=== PATIENT | female | born 2000 | race Caucasian/White ===

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

== ENCOUNTER → 2020-06-19 14:24 | Outpatient (BNVA) | payer BC, SELFPAY | PROVIDERS: Family Provider Pediatrics Adolescent Medicine; PCP Pediatrics Adolescent Medicine; Visit Provider Internal Medicine | DX: N91.2 Amenorrhea, unspecified (principal) | CPT/HCPCS: 84702 ==

== ENCOUNTER → 2021-03-03 12:48 | Outpatient (BNVA) | payer BC, SELFPAY | PROVIDERS: Family Provider Pediatrics Adolescent Medicine; Visit Provider Registered Nurse Neonatal Intensive Care | DX: Z20.822 Contact with and (suspected) exposure to COVID-19 (principal) | CPT/HCPCS: 87635 ==

== ENCOUNTER 2021-04-16 07:45 | Emergency (ER) | payer OTHER, SELFPAY ==
[2021-04-16 07:52] VITALS: BP 121/77; PULSE 75; RESP 18; TEMP 37.1; O2SAT 98; BMI 28.3
--- NOTE | 2021-04-16 08:04 | W.ED.EXTPRO ---
HPI - Extremity Problem General: Chief complaint: Extremity Injury, Upper Stated complaint: R hand injury Time Seen by Provider: 04/16/21 07:47 History of Present Illness: Patient is a 20-year-old female comes to the ED with accidental needlestick. 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 K wire was contaminated by being in contact the person who was getting surgery currently. Needlestick occurred in the palm of patient's right hand. Patient denies any other symptoms. Patient is up-to-date on her tetanus. Associated symptoms: Deny chest pain, fever(s) or rash Review of Systems Const: Denies: fever(s), chills or fatigue Eyes: Denies: change in vision or eye discomfort ENMT: Denies: throat pain, odynophagia, nasal discharge or nasal congestion Card: Denies: chest pain, palpitations, edema, swelling of feet/ankles, dyspnea on exertion or orthopnea Resp: Denies: dyspnea, productive cough or non-productive cough GI: Denies: abdominal pain, nausea, vomiting, diarrhea, constipation or hematochezia : Denies: flank pain, dysuria or hematuria Musc: Denies: neck pain, back pain or extremity swelling Skin/Breast: Reports: new lesions (Small puncture wound to right hand); Denies: rash Neuro: Denies: headache(s), numbness in extremities or weakness in extremities [facility] PFSH: Medical History Anxiety No pertinent past medical history neghx: htn,dm,thyroid,DVT/PE PCP: Milvia Brenner Oligomenorrhea Primary dysmenorrhea Surgical History No pertinent past surgical history Family History Mother Hypertension Grandfather Hypertension Paternal grandfather Stroke Maternal grandfather Heart disease Maternal grandfather Diabetes Paternal grandfather Grandmother Hypertension Maternal garndmother Diabetes Maternal Grandmother Denies family history of Colon cancer Ovarian cancer Hyperlipidemia Breast cancer Uterine cancer Social History Smoking and tobacco status: never smoked Alcohol intake: never Female Reproductive History: Date of last menstrual period: 03/11/21 Physical Exam Const: COMMON NORMALS: no acute distress, patient oriented x3, healthy appearing and alert GENERAL APPEARANCE: cooperative and comfortable HENMT: COMMON NORMALS: normocephalic HEAD & SCALP: normocephalic MOUTH: Normal oral and palatal mucosa present THROAT: posterior oropharynx normal and uvula midline Neck/C-Spine: COMMON NORMALS: supple GENERAL: Yes normal visual inspection Resp: COMMON NORMALS: normal respiratory effort, No retractions, No use of accessory muscles and clear to auscultation bilaterally AUSCULTATION: clear to auscultation bilaterally Cardio: COMMON NORMALS: regular rate, regular rhythm, S1 normal heart sound present, S2 normal heart sound present, No gallops present (Cardio), No clicks present (Cardio), No murmurs present (Cardio) and Peripheral pulses 2+ throughout RATE: regular rate RHYTHM: regular rhythm HEART SOUNDS: S1 normal heart sound present and S2 normal heart sound present PERIPHERAL PULSES: Peripheral pulses 2+ throughout GI: COMMON NORMALS: Normal to inspection, nondistended, normoactive bowel sounds present, Soft to palpation, non-tender and no masses PALPATION: Yes Soft to palpation : COMMON NORMALS: Yes no CVA tenderness BLADDER/KIDNEY EXAM: Yes no CVA tenderness Back/Pelvis: COMMON NORMALS: no CVA tenderness Extremity: NARRATIVE EXTREMITY EXAM: Small superficial puncture wound of palm of right hand. No signs of infection noted. GENERAL: Yes normal exam except as noted Neuro: COMMON NORMALS: patient oriented x3 and moves all extremities SENSORIUM/ORIENTATION: Yes alert Skin: NARRATIVE SKIN EXAM: Small superficial puncture wound of palm of right hand. No signs of infection noted. GENERAL SKIN EXAM: dry skin Course ED course: When the results came back on her hepatitis and HIV panel patient was already discharged back to work here in the hospital. I called her preferred phone number and discussed with her the hepatitis and HIV panel results. She said that she has had the hepatitis B vaccination. I last told her that her hepatitis B antibodies were low which is inconsistent with immunity. I recommended that patient contact her PCP and set up an appoint with them for Monday morning for further evaluation and to discuss labs and possible hepatitis B vaccination. Patient understood and agreed with plan. Vital Signs: Vital signs: Vital Signs Temperature 98.7 F 04/16/21 07:52 Pulse Rate 75 04/16/21 07:52 Respiratory Rate 18 04/16/21 07:52 Blood Pressure 121/77 04/16/21 07:52 Pulse Oximetry 98 04/16/21 07:52 MDM - Extremity (Nontraumatic) Medical Decision Making Patient is a 20-year-old female comes to the ED after an accidental needlestick. 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 Vitals stable. CBC, CMP were unremarkable. Hepatitis panel and HIV labs pending. Nurse cleaned, applied triple antibiotic ointment and bandaged wound. Patient was discharged and told to follow up on labs. Labs came back approximately 1 hour after patient was discharged home with contacted her via telephone to let her know about results. I asked her if she had had hepatitis B vaccination series when she was younger and she said she did. I recommend an that she set up an appointment with her PCP on Monday to go over lab results and discuss possible hepatitis B vaccine booster. Patient understood and said she will contact her PCP and get this appointment set up with them on Monday. She was also told to have repeat labs done in 4 to 8 weeks. Return to ED precautions given. Patient understood and agreed with plan. Lab Data I reviewed the patient's lab results. : 04/16/21 08:21 04/16/21 08:21 Laboratory Results WBC 8.7 10^3/uL (4.5-13.0) 04/16/21 08:21 RBC 4.44 10^6/uL (4.1-5.3) 04/16/21 08:21 Hgb 13.0 g/dL (11.5-15.3) 04/16/21 08:21 Hct 41.5 % (37.0-47.0) 04/16/21 08:21 MCV 93.5 fl (81-99) 04/16/21 08:21 MCH 29.3 pg (28.0-34.0) 04/16/21 08:21 MCHC 31.3 g/dL (30.0-36.0) 04/16/21 08:21 RDW 13.1 % (12.1-15.1) 04/16/21 08:21 Plt Count 224 10^3/cmm (130-400) 04/16/21 08:21 MPV 12.2 fL (7.4-10.4) H 04/16/21 08:21 Neut % (Auto) 54.3 % 04/16/21 08:21 Lymph % (Auto) 33.1 % 04/16/21 08:21 [place] % (Auto) 7.1 % 04/16/21 08:21 Eos % (Auto) 3.6 % 04/16/21 08:21 Baso % (Auto) 1.0 % 04/16/21 08:21 Neut # (Auto) 4.74 10^3/uL (1.8-8.0) 04/16/21 08:21 Lymph # (Auto) 2.9 10^3/uL (1.5-6.5) 04/16/21 08:21 [place] # (Auto) 0.6 10^3/uL (0.2-0.9) 04/16/21 08:21 Eos # (Auto) 0.3 10^3/uL (0.0-0.8) 04/16/21 08:21 Baso # (Auto) 0.1 10^3/uL (0.0-0.1) 04/16/21 08:21 Nucleated RBC % (auto) 0 % 04/16/21 08:21 Nucleated RBCs # 0.0 /100WBC 04/16/21 08:21 Sodium 143 mmol/L (136-145) 04/16/21 08:21 Potassium 4.0 mmol/L (3.5-5.1) 04/16/21 08:21 Chloride 106 mmol/L (98-107) 04/16/21 08:21 Carbon Dioxide 23 mmol/L (22-29) 04/16/21 08:21 Anion Gap 18.0 (5-19) 04/16/21 08:21 BUN 11 mg/dL (6-20) 04/16/21 08:21 Creatinine 0.3 mg/dL (0.5-0.9) L 04/16/21 08:21 GFR Calculation 283.6 mL/min (90-130) H 04/16/21 08:21 Glucose 95 mg/dL (65-115) 04/16/21 08:21 Calculated Osmolality 295 mOsm/kg (285-295) 04/16/21 08:21 Calcium 10.4 mg/dL (8.5-10.5) 04/16/21 08:21 Total Bilirubin 0.3 mg/dL (0.15-1.2) 04/16/21 08:21 AST 57 U/L (0-32) H 04/16/21 08:21 ALT 102 U/L (0-33) H 04/16/21 08:21 Alkaline Phosphatase 109 IU/L (35-105) H 04/16/21 08:21 Total Protein 8.1 g/dL (6.6-8.7) 04/16/21 08:21 Albumin 5.3 g/dL (3.5-5.2) H 04/16/21 08:21 Globulin 2.8 g/dL (1.3-4.6) 04/16/21 08:21 Hep Bs Antigen Non-reactive (Nonreactive) 04/16/21 08:21 Hep Bs Antibody 3.5 (11.5-1000) L 04/16/21 08:21 Hepatitis C Antibody Non-reactive (Nonreactive) 04/16/21 08:21 HIV 1&2 Ab & HIV 1 Ag Non-reactive (Non-Reactiv) 04/16/21 08:21 HIV 1&2 Antibody Non-reactive (Non-Reactiv) 04/16/21 08:21 Discharge Plan Discharge Patient Disposition: Home Clinical Impression: Accidental needlestick injury with exposure to body fluid Condition: Stable Prescriptions: No Action amoxicillin-pot clavulanate [Augmentin] 875-125 mg tablet 1 tab PO BID 7 Days Qty: 14 0RF Zoloft 100 mg tablet 50 mg PO DAILY 0RF Discharge Orders: Discharge ED (Routine); Ordered 04/16/21 Ordered By: Wesly Ashraf Referrals: Ana Rosa Blanca MD [Family Provider] - Discharge Diet: Regular Discharge Activity: Resume usual activity Patient Instructions: Needle Stick Injuries (ED) Activity Restrictions/Additional Instructions: Follow-up with medical provider as directed in the next 4 to 8 weeks to recheck hepatitis and HIV lab work. Return to the ER or your medical provider if condition worsens. Please read and understand discharge instructions. Thank you for choosing [facility] for your healthcare needs today. Please realize this is an emergency room and that we are providing you with a medical screening exam and this may not be complete and all inclusive of all the testing and or work up that you may need to determine your ailment or severity of your illness. It is very important that you follow up as instructed or that you return to the Emergency Department should you have concerns or if your condition changes or worsens in any way. Coding Level of Care Code ED Poultry Picker for Melissa Ya Exam Comprehensive
[2021-04-16] MEDS: neomycin-poly-bacitracin oint 0.9 gm Pkt 1 APPLIC TOPICAL (08:18)
[2021-04-16 08:26] LABS: Basophils # 0.1 10^3/uL (0.0-0.1); Eosinophils # 0.3 10^3/uL (0.0-0.8); Eosinophils % 3.6 %; Hematocrit 41.5 % (37.0-47.0); Lymphocytes # 2.9 10^3/uL (1.5-6.5); Lymphocytes % 33.1 %; Mean Corpuscular HGB Conc 31.3 g/dL (30.0-36.0); Mean Corpuscular Hemoglobin 29.3 pg (28.0-34.0); Mean Corpuscular Volume 93.5 fl (81-99); Mean Platelet Volume 12.2 fL (7.4-10.4); Monocytes # 0.6 10^3/uL (0.2-0.9); Monocytes % 7.1 %; Neutrophils # 4.74 10^3/uL (1.8-8.0); Neutrophils % 54.3 %; Nucleated Red Blood Cells % 0 %; Platelet Count 224 10^3/cmm (130-400); Red Blood Count 4.44 10^6/uL (4.1-5.3); Red Cell Distribution Width 13.1 % (12.1-15.1); White Blood Count 8.7 10^3/uL (4.5-13.0)
[2021-04-16 08:50] LABS: Alanine Aminotransferase 102 U/L (0-33); Albumin Level 5.3 g/dL (3.5-5.2); Alkaline Phosphatase 109 IU/L (35-105); Aspartate Amino Transferase 57 U/L (0-32); Blood Urea Nitrogen 11 mg/dL (6-20); Calcium 10.4 mg/dL (8.5-10.5); Carbon Dioxide 23 mmol/L (22-29); Chloride 106 mmol/L (98-107); Globulin 2.8 g/dL (1.3-4.6); Glomerular Filtration Rate 283.6 mL/min (90-130); Glucose 95 mg/dL (65-115); Osmolality Calculated 295 mOsm/kg (285-295); Sodium 143 mmol/L (136-145); Total Bilirubin 0.3 mg/dL (0.15-1.2); Total Protein 8.1 g/dL (6.6-8.7)
[2021-04-16 09:12] LABS: HIV 1 & 2 Antibody Non-Reactive (Non-Reactiv); HIV 1 & 2 Antigen Non-Reactive (Non-Reactiv)
[2021-04-16 09:17] LABS: Hepatitis B Surface AB 3.5 (11.5-1000); Hepatitis B Surface Antigen Non-Reactive (Nonreactive); Hepatitis C Virus Antibody Non-Reactive (Nonreactive)
== END 2021-04-16 08:46 | disposition home or self-care (01) ==
PROVIDERS: Emergency Provider Physician Assistant
DX: S61.431A Puncture wound without foreign body of right hand, initial encounter (principal); Z77.21 Contact with and (suspected) exposure to potentially hazardous body fluids; W26.8XXA Contact with other sharp object(s), not elsewhere classified, initial encounter; Y92.234 Operating room of hospital as the place of occurrence of the external cause; Y99.0 Civilian activity done for income or pay
CPT/HCPCS: 36415; 80053; 85025; 86706; 86803; 87340; 87806; 99282

== ENCOUNTER → 2021-06-17 15:48 | Outpatient (BNVA) | payer OTHER, SELFPAY | PROVIDERS: Visit Provider Obstetrics & Gynecology | DX: N92.6 Irregular menstruation, unspecified (principal) | CPT/HCPCS: 83036; 83525; 84443 ==

== ENCOUNTER → 2021-06-28 15:27 | Outpatient (BNVA) | payer OTHER, SELFPAY | PROVIDERS: Referring Provider Obstetrics & Gynecology; Visit Provider Obstetrics & Gynecology | DX: N92.6 Irregular menstruation, unspecified (principal) | CPT/HCPCS: 76830 ==

== ENCOUNTER → 2021-08-13 08:48 | Outpatient (BNVA) | payer OTHER, SELFPAY | PROVIDERS: Visit Provider Obstetrics & Gynecology | DX: N92.6 Irregular menstruation, unspecified (principal) | CPT/HCPCS: 83525 ==

== ENCOUNTER 2021-09-30 11:38 | Outpatient (CLI) | payer OTHER, SELFPAY ==
[2021-09-30 12:57] LABS: Progesterone 11.37 ng/mL
== END 2021-09-30 11:39 | disposition home or self-care (01) ==
LOC: LAB 11:40
PROVIDERS: Visit Provider Obstetrics & Gynecology
DX: E28.2 Polycystic ovarian syndrome (principal)
CPT/HCPCS: 36415; 84144

== ENCOUNTER → 2021-10-06 13:45 | Outpatient (BNVA) | payer OTHER, SELFPAY | PROVIDERS: Visit Provider Obstetrics & Gynecology | DX: Z32.01 Encounter for pregnancy test, result positive (principal) | CPT/HCPCS: 84702 ==

== ENCOUNTER 2021-11-03 11:31 | Emergency (ER) | payer OTHER, SELFPAY ==
[2021-11-03 11:44] VITALS: BP 117/70; PULSE 81; RESP 16; TEMP 36.6; O2SAT 98; BMI 28.3
[2021-11-03 13:33] LABS: Basophils # 0.1 10^3/uL (0.0-0.1); Basophils % 0.8 %; Eosinophils # 0.3 10^3/uL (0.0-0.8); Eosinophils % 2.9 %; Hematocrit 34.5 % (37.0-47.0); Hemoglobin 10.8 g/dL (11.5-15.3); Lymphocytes # 2.5 10^3/uL (1.5-6.5); Lymphocytes % 25.8 %; Mean Corpuscular HGB Conc 31.3 g/dL (30.0-36.0); Mean Corpuscular Hemoglobin 30.2 pg (28.0-34.0); Mean Corpuscular Volume 96.4 fl (81-99); Mean Platelet Volume 12.6 fL (7.4-10.4); Monocytes # 0.8 10^3/uL (0.2-0.9); Monocytes % 7.8 %; Neutrophils # 5.85 10^3/uL (1.8-8.0); Neutrophils % 61.2 %; Nucleated Red Blood Cells % 0 %; Platelet Count 235 10^3/cmm (130-400); Red Blood Count 3.58 10^6/uL (4.1-5.3); Red Cell Distribution Width 12.8 % (12.1-15.1); White Blood Count 9.6 10^3/uL (4.5-13.0)
[2021-11-03 13:43] LABS: HCG, Serum Qual Negative (Negative)
[2021-11-03 13:45] LABS: Alanine Aminotransferase 104 U/L (0-33); Albumin Level 4.9 g/dL (3.5-5.2); Alkaline Phosphatase 87 U/L (35-105); Anion Gap 16.9 (5-19); Aspartate Amino Transferase 47 U/L (0-32); Blood Urea Nitrogen 14 mg/dL (6-20); Calcium 9.8 mg/dL (8.5-10.5); Carbon Dioxide 24 mmol/L (22-29); Chloride 102 mmol/L (98-107); Globulin 2.6 g/dL (1.3-4.6); Glomerular Filtration Rate 203.5 mL/min (90-130); Glucose 93 mg/dL (65-115); Osmolality Calculated 288 mOsm/kg (285-295); Potassium 3.9 mmol/L (3.5-5.1); Sodium 139 mmol/L (136-145); Total Bilirubin 0.4 mg/dL (0.15-1.2); Total Protein 7.5 g/dL (6.6-8.7)
--- NOTE | 2021-11-03 13:47 | W.ED.ABDPA2 ---
HPI - Abdominal Pain General: Chief Complaint: Abdominal Pain Stated Complaint: right abd pain Time Seen by Provider: 11/03/21 13:40 Source: patient Mode of arrival: ambulatory History of Present Illness: 20-year-old female presents emergency room complaining of lower abdominal pain on the right side. No dysuria urgency or frequency has had normal voiding with BMs. No diarrhea. No flank pain Onset (ago): day(s) (5) Pain Consistency: intermittent Location: Pelvis Severity: moderate Quality: cramping Radiation: none Exacerbating factors: nothing Relieving factors: nothing Associated Symptoms: Reports bloating and GI cramping; Denies anorexia, belching, change in bowel habits, change in stool character, chills, coffee ground emesis, constipation, diarrhea, dyspepsia, dysuria, excessive flatus, fever(s), heartburn, hematochezia, hematuria, hematemesis, fecal incontinence, loose stools, melena, nausea, poor appetite and vomiting Related Data: Date of Last Menstrual Period: 03/11/21 Review of Systems Const: Denies: fever(s), chills, fatigue or malaise ENMT: Denies: throat pain, ear or mastoid pain, nasal discharge or nasal congestion Card: Denies: chest pain, edema, dyspnea on exertion or orthopnea Resp: Denies: dyspnea, productive cough or non-productive cough GI: Reports: bloating and GI cramping; Denies: nausea, vomiting, hematemesis, coffee ground emesis, heartburn, diarrhea, constipation, belching, excessive flatus, fecal incontinence, change in bowel habits, change in stool character, hematochezia or melena : Reports: pelvic pain; Denies: flank pain, difficulty voiding, dysuria, urinary frequency, urinary urgency, hematuria, vaginal bleeding or vaginal discharge Skin/Breast: Denies: rash or pruritus PFSH ED PFSH: Medical History Anxiety No pertinent past medical history neghx: htn,dm,thyroid,DVT/PE PCP: Milvia Brenner Oligomenorrhea Primary dysmenorrhea Surgical History No pertinent past surgical history Family History Mother Hypertension Grandfather Hypertension Paternal grandfather Stroke Maternal grandfather Heart disease Maternal grandfather Diabetes Paternal grandfather Grandmother Hypertension Maternal garndmother Diabetes Maternal Grandmother Denies family history of Colon cancer Ovarian cancer Hyperlipidemia Breast cancer Uterine cancer Social History Smoking and tobacco status: never smoked Alcohol intake: never Female Reproductive History: Date of last menstrual period: 03/11/21 Physical Exam Const: GENERAL APPEARANCE: cooperative and comfortable ORIENTATION/CONSCIOUSNESS: Yes awake, Yes oriented to person, Yes oriented to place and Yes oriented to time HENMT: COMMON NORMALS: normocephalic, atraumatic and hearing grossly normal bilaterally HEAD & SCALP: normocephalic and atraumatic Resp: COMMON NORMALS: normal respiratory effort, No retractions, No use of accessory muscles and clear to auscultation bilaterally AUSCULTATION: clear to auscultation bilaterally Cardio: COMMON NORMALS: regular rate, regular rhythm and No murmurs present (Cardio) RATE: regular rate RHYTHM: regular rhythm GI: COMMON NORMALS: No hepatosplenomegaly present AUSCULTATION: Yes normoactive bowel sounds PALPATION: Yes Tenderness to palpation present (GI) Details: LLQ, No Guarding due to palpation present (GI) and Yes No hepatosplenomegaly present Extremity: COMMON NORMALS: normal to inspection, capillary refill normal, no clubbing, cyanosis or edema, no calf tenderness and no pedal edema Neuro: SENSORIUM/ORIENTATION: Yes oriented to person, Yes oriented to place and Yes oriented to time Skin: COMMON NORMALS: no rashes or lesions noted GENERAL SKIN EXAM: no rashes or lesions noted Course Vital Signs: Vital signs: Vital Signs Temperature 97.9 F 11/03/21 11:44 Pulse Rate 88 11/03/21 15:26 Respiratory Rate 14 11/03/21 15:26 Blood Pressure 128/77 11/03/21 15:26 Pulse Oximetry 100 11/03/21 15:26 Oxygen Delivery Me thod 11/03/21 15:26 MDM - Abdominal Pain Medical Decision Making Pelvic ultrasound shows cysts free fluid in the pelvis likely from ruptured cyst discussed with patient start anti-inflammatories Medical Records I reviewed the patient's medical records. Lab Data I reviewed the patient's lab results. : 11/03/21 13:02 11/03/21 13:02 Labs/Radiology: Radiology Impressions Transvaginal US 11/03/21 13:51 IMPRESSION: 1. Hemorrhagic LEFT ovarian cyst measuring 3.3 x 3.9 x 3.1 cm with a small amount of surrounding fluid/blood products. 2. Multifollicular ovaries bilaterally suspicious for polycystic ovarian disease. 3. Endometrium measures 10 mm within normal limits. 4. Fluid and suspected blood products within the cul-de-sac. Laboratory Results WBC 9.6 10^3/uL (4.5-13.0) 11/03/21 13:02 RBC 3.58 10^6/uL (4.1-5.3) L 11/03/21 13:02 Hgb 10.8 g/dL (11.5-15.3) L 11/03/21 13:02 Hct 34.5 % (37.0-47.0) L 11/03/21 13:02 MCV 96.4 fl (81-99) 11/03/21 13:02 MCH 30.2 pg (28.0-34.0) 11/03/21 13:02 MCHC 31.3 g/dL (30.0-36.0) 11/03/21 13:02 RDW 12.8 % (12.1-15.1) 11/03/21 13:02 Plt Count 235 10^3/cmm (130-400) 11/03/21 13:02 MPV 12.6 fL (7.4-10.4) H 11/03/21 13:02 Neut % (Auto) 61.2 % 11/03/21 13:02 Lymph % (Auto) 25.8 % 11/03/21 13:02 Walsh % (Auto) 7.8 % 11/03/21 13:02 Eos % (Auto) 2.9 % 11/03/21 13:02 Baso % (Auto) 0.8 % 11/03/21 13:02 Neut # (Auto) 5.85 10^3/uL (1.8-8.0) 11/03/21 13:02 Lymph # (Auto) 2.5 10^3/uL (1.5-6.5) 11/03/21 13:02 Walsh # (Auto) 0.8 10^3/uL (0.2-0.9) 11/03/21 13:02 Eos # (Auto) 0.3 10^3/uL (0.0-0.8) 11/03/21 13:02 Baso # (Auto) 0.1 10^3/uL (0.0-0.1) 11/03/21 13:02 Nucleated RBC % (auto) 0 % 11/03/21 13:02 Nucleated RBCs # 0.0 /100WBC 11/03/21 13:02 Sodium 139 mmol/L (136-145) 11/03/21 13:02 Potassium 3.9 mmol/L (3.5-5.1) 11/03/21 13:02 Chloride 102 mmol/L (98-107) 11/03/21 13:02 Carbon Dioxide 24 mmol/L (22-29) 11/03/21 13:02 Anion Gap 16.9 (5-19) 11/03/21 13:02 BUN 14 mg/dL (6-20) 11/03/21 13:02 Creatinine 0.4 mg/dL (0.5-0.9) L 11/03/21 13:02 GFR Calculation 203.5 mL/min (90-130) H 11/03/21 13:02 Glucose 93 mg/dL (65-115) 11/03/21 13:02 Calculated Osmolality 288 mOsm/kg (285-295) 11/03/21 13:02 Calcium 9.8 mg/dL (8.5-10.5) 11/03/21 13:02 Total Bilirubin 0.4 mg/dL (0.15-1.2) 11/03/21 13:02 AST 47 U/L (0-32) H 11/03/21 13:02 ALT 104 U/L (0-33) H 11/03/21 13:02 Alkaline Phosphatase 87 U/L (35-105) 11/03/21 13:02 Total Protein 7.5 g/dL (6.6-8.7) 11/03/21 13:02 Albumin 4.9 g/dL (3.5-5.2) 11/03/21 13:02 Globulin 2.6 g/dL (1.3-4.6) 11/03/21 13:02 HCG, Qual Negative (Negative) 11/03/21 13:02 Urine Color Yellow (Yellow) 11/03/21 14:30 Urine Appearance Hazy (CLEAR) A 11/03/21 14:30 Urine pH 5 (5-7) 11/03/21 14:30 Ur Specific [place] 1.030 (1.005-1.030) 11/03/21 14:30 Urine Protein Neg (Negative) 11/03/21 14:30 Urine Glucose (UA) Norm (Normal) 11/03/21 14:30 Urine Ketones 1+ (Negative) H 11/03/21 14:30 Urine Blood 3+ (Negative) H 11/03/21 14:30 Urine Nitrate Negative (Negative) 11/03/21 14:30 Urine Bilirubin Neg (Negative) 11/03/21 14:30 Urine Urobilinogen Norm mg/dL (Negative) 11/03/21 14:30 Ur Leukocyte Esterase 2+ (Negative) H 11/03/21 14:30 Urine RBC 0-4 /hpf (0-2) H 11/03/21 14:30 Urine WBC 40-55 /hpf (0-5) H 11/03/21 14:30 Ur Squamous Epith Cells 15-25 /hpf (0-5) H 11/03/21 14:30 Amorphous Sediment 2+ /hpf 11/03/21 14:30 Urine Bacteria 4+ /hpf (NONE) H 11/03/21 14:30 Discharge Plan Discharge Patient Disposition: Home Clinical Impression: Ovarian cyst, Cystitis Condition: Stable Prescriptions: New diclofenac sodium 75 mg tablet,delayed release (DR/EC) 75 mg PO Q12H PRN (Reason: pain) Qty: 20 0RF Bactrim DS 800-160 mg tablet 1 tab PO BID 7 Days Qty: 14 0RF No Action sertraline 50 mg tablet 50 mg PO DAILY prednisone 20 mg tablet 20 mg PO DAILY Qty: 5 0RF montelukast [Singulair] 10 mg tablet 10 mg PO DAILY Qty: 30 0RF metformin 750 mg tablet extended release 24 hr 750 mg PO DAILY Qty: 30 12RF clomiphene citrate 50 mg tablet 50 mg PO DAILY 5 Days Qty: 5 0RF Rx Instructions: start cycle day #3 for 5 days. Discharge Orders: Discharge ED (Routine); Ordered 11/03/21 Ordered By: Andrew Ruiz Discharge Diet: Usual diet Discharge Activity: Increase activity as tolerated Patient Instructions: Opioid Safety, Pain Management Activity Restrictions/Additional Instructions: Pelvic rest 1 to 2 weeks. Diclofenac as needed for cramping. Follow-up with your primary care doctor. Coding Level of Care Code ED Grinder Machine Setter for Melissa Ya
--- NOTE | 2021-11-03 13:51 | US_ITS ---
WS: [id number] ULTRASOUND PELVIS TECHNIQUE: Transvaginal. CLINICAL INFORMATION: pelvic pain : No. COMPARISON: June 28, 2021 FINDINGS: Uterus Size: 3.2 x 4.4 x 6.8 cm Masses: None. Cervix: Incidental nabothian cysts. Endometrium: Normal. Endometrium thickness: 10 mm. Adnexa: Hemorrhagic LEFT ovarian cyst. Surrounding fluid/blood products. Right ovary size: 3.2 x 4.0 x 2.3 cm. Left ovary size: 5.2 x 4.4 x 5.1 cm. Free fluid: Fluid with suspected blood products in the cul-de-sac. Other findings: None. US/US transvaginal [id number] IMPRESSION: 1. Hemorrhagic LEFT ovarian cyst measuring 3.3 x 3.9 x 3.1 cm with a small srinivasa unt of surrounding fluid/blood products. 2. Multifollicular ovaries bilaterally suspicious for polycystic ovarian disea se. 3. Endometrium measures 10 mm within normal limits. 4. Fluid and suspected blood products within the cul-de-sac.
[2021-11-03 14:10] VITALS: BP 116/73; PULSE 75; RESP 14; O2SAT 99
[2021-11-03 15:08] LABS: Urine Appearance Hazy (CLEAR); Urine Color Yellow (Yellow); pH Urine 5 (5-7)
[2021-11-03 15:09] LABS: Add Urine Microscopic? YES; Bacteria Urine 4+ /hpf; Bilirubin Urine Neg (Negative); Blood Urine 3+ (Negative); Glucose Urine UA Norm (Normal); Ketones Urine 1+ (Negative); Leukocyte Esterase Urine 2+ (Negative); Nitrate Urine Negative (Negative); Protein Urine Neg (Negative); RBC Urine 0-4 /hpf (0-2); Squamous Epithelial Cell Urine 15-25 /hpf (0-5); Urobilinogen Urine Norm (Negative); WBC Urine 40-55 /hpf (0-5)
[2021-11-03 15:10] LABS: Add Urine Culture? Yes; Amorphous Sediment Urine 2+ /hpf
[2021-11-03 15:26] VITALS: BP 128/77; PULSE 88; RESP 14; O2SAT 100
== END 2021-11-03 15:28 | disposition home or self-care (01) ==
PROVIDERS: Emergency Provider Family Medicine
DX: N83.202 Unspecified ovarian cyst, left side (principal); N30.90 Cystitis, unspecified without hematuria
CPT/HCPCS: 36415; 76830; 80053; 81001; 84703; 85025; 87086; 99284

== ENCOUNTER → 2022-02-17 08:37 | Outpatient (BNVA) | payer OTHER, SELFPAY | PROVIDERS: Visit Provider Obstetrics & Gynecology | DX: Z01.419 Encounter for gynecological examination (general) (routine) without abnormal findings (principal) | CPT/HCPCS: 88175 ==

== ENCOUNTER → 2022-03-25 14:00 | Outpatient (BNVA) | payer OTHER, SELFPAY | PROVIDERS: Visit Provider Obstetrics & Gynecology | DX: N97.9 Female infertility, unspecified (principal) | CPT/HCPCS: 84702 ==

== ENCOUNTER 2022-10-25 07:41 | Outpatient (CLI) | payer OTHER, SELFPAY ==
[2022-10-25] VITALS (39 sets, daily range): BP systolic 101–136; BP diastolic 52–77; PULSE 71–100; RESP 18; TEMP 36.3; O2SAT 98–100; BMI 32.5
[2022-10-25] MEDS: lactated ringers 1,000 ML 999 ML IV ×2 (08:28→10:03)
[2022-10-25] MEDS: terbutaline 1 mg/mL INJ 0.25 MG SUBCUT (08:29)
[2022-10-25] MEDS: betamethasone susp 6 mg/mL 5 mL 12 MG IM (08:29)
[2022-10-25] MEDS: ampicillin 2,000 MG in sodium chloride 0.9% (plus) 50 ML 100 MG IV (08:43)
[2022-10-25 08:52] LABS: Basophils # 0.1 10^3/uL (0.0-0.1); Basophils % 0.5 %; Eosinophils # 0.1 10^3/uL (0.0-0.8); Eosinophils % 0.8 %; Hematocrit 34.3 % (36-47); Lymphocytes # 2.1 10^3/uL (0.8-4.8); Lymphocytes % 16.6 %; Mean Corpuscular HGB Conc 32.1 g/dL (30-55); Mean Corpuscular Hemoglobin 28.9 pg (27-33); Mean Platelet Volume 13.3 fL (7.4-10.4); Monocytes # 0.8 10^3/uL (0.2-0.9); Monocytes % 6.2 %; Neutrophils # 9.19 10^3/uL (1.8-7.7); Neutrophils % 73.5 %; Nucleated Red Blood Cells % 0 %; Platelet Count 207 10^3/cmm (157-399); Red Blood Count 3.81 10^6/uL (3.85-5.65); Red Cell Distribution Width 13.3 % (12.1-15.1)
[2022-10-25 08:53] LABS: Add Urine Culture? Yes; Bacteria Urine 2+ /hpf; Bilirubin Urine Neg (Negative); Blood Urine 3+ (Negative); Glucose Urine UA Norm (Normal); Ketones Urine 1+ (Negative); Leukocyte Esterase Urine 2+ (Negative); Nitrate Urine Negative (Negative); Protein Urine 1+ (Negative); RBC Urine 25-40 /hpf (0-2); Specific Gravity, Urine 1.025 (1.005-1.030); Squamous Epithelial Cell Urine 0-4 /hpf (0-5); Urine Appearance Cloudy (CLEAR); Urine Color Yellow (Yellow); Urobilinogen Urine Norm (Negative); WBC Urine >100 /hpf (0-5); pH Urine 5 (5-7)
[2022-10-25 09:40] LABS: Slide Review Slide Review Perform
[2022-10-25] MEDS: fluconazole 100 mg Tablet 150 MG PO (11:34)
--- NOTE | 2022-10-25 11:41 | PC.NURSE ---
Prescription called to [facility] on [address] at this time.
[2022-10-26 16:08] LABS: Chlamydia Trachomatis RNA TMA NOT DETECTED (NOT DETECTED); Neisseria Gonorrhoeae RNA, TMA NOT DETECTED (NOT DETECTED)
== END 2022-10-25 11:40 | disposition home or self-care (01) ==
LOC: OPOB 07:42 → OBGYN 07:43
PROVIDERS: PCP Clinical Nurse Specialist Adult Health; Visit Provider Family Medicine
DX: O26.899 Other specified pregnancy related conditions, unspecified trimester (principal); Z3A.00 Weeks of gestation of pregnancy not specified; R10.9 Unspecified abdominal pain
CPT/HCPCS: 59025; 81001; 85025; 87086; 87210; 87491; 87591; 96372; 99211; J0290; J0702; J3105; J7120

== ENCOUNTER 2022-10-25 20:15 | Outpatient (CLI) | payer OTHER, SELFPAY ==
[2022-10-25] VITALS (24 sets, daily range): BP systolic 115–130; BP diastolic 61–73; PULSE 68–120; RESP 16; TEMP 36.1; O2SAT 99; BMI 32.5
[2022-10-25] MEDS: NIFEdipine 10 mg Capsule 20 MG PO (21:07)
[2022-10-25] MEDS: NIFEdipine 10 mg Capsule PO ×2 (21:40→22:47)
[2022-10-25] MEDS: sodium chloride 0.9% 1,000 ML 999 ML IV (22:55)
[2022-10-25] MEDS: cefTRIAXone 1,000 MG in sodium chloride 0.9% (plus) 50 ML 100 MG IV (22:55)
[2022-10-25] MEDS: terbutaline 1 mg/mL INJ 0.25 MG SUBCUT (23:14)
[2022-10-26] VITALS (15 sets, daily range): BP systolic 119–142; BP diastolic 69–83; PULSE 85–130; RESP 17; O2SAT 99–100
--- NOTE | 2022-10-26 00:23 | PM.TDS ---
Transfer Summary Providers Date of Discharge/Transfer: 10/26/22 Attending Provider at Admission: Paul Paul Attending Provider at Transfer: Paul Paul MD Primary Care Provider: Darin Lamb Transfer Plans: Anticipated date of transfer: 10/26/22. Additional transfer facility information: [facility] does not have the patient's labs due to the gestational age of the patient. Her labs are as follows: Drug screen was negative. Urine culture was negative. Chlamydia and gonorrhea were negative. Hepatitis B and hepatitis C were negative. HIV was negative. Her Q dorian was unremarkable. Her blood type is O- with a negative antibody screen. Her glucose screen was 137. Her 3-hour screen was negative with readings of 91, 149, 124, and 110. GBS status is unknown due to gestational age. She received RhoGAM at around 28 weeks. She is given her Tdap immunization. Her is otherwise been unremarkable. She has consistently come to appointments, and has been an excellent patient in general. She is on sertraline 50 mg due to anxiety.. . Reason for Visit Reason for Visit Abdominal pain Brief History: The patient presented to the hospital complaining of consistent worsening contractions. The patient had been seen in the hospital earlier in the day complaining of discharge and contractions. At her first hospital visit. She was noted to have contractions every 3 to 5 minutes. As a part of her work-up she was found to have 100+ white blood cells and 2+ urine bacteria. She also had some thick vaginal discharge and a wet prep was done which demonstrated yeast and/or fungal elements. Initially she was hydrated both orally and with IV fluids. Despite that her contractions continued and became more painful. She was given ampicillin to cover for group B strep as well as for her urinary tract infection. She is also given Diflucan 150 mg for her yeast infection. Finally she was given her first dose of betamethasone, and terbutaline for tocolysis. Her contractions gradually improved and resolved to where she was no longer feeling contractions. The patient then returned tonight with increasing frequency and worsening painful contractions. Hospital Course Hospital Course After being triaged, the patient once again the patient was rehydrated, the patient was also placed on Procardia 20 mg followed by 10 and 10 mg. Despite that her contractions continued to occur between 3 to 5 minutes and continue to be painful. We tried terbutaline since it was used successful in the morning but it had no impact. I also gave her a dose of Rocephin for extra coverage in case the organism was not sensitive to the ampicillin. Despite that her exam went from being a -3 station, 70% effaced, and 2 cm dilated to a -1 station 95% effaced and a loose 2 with a bulging bag of fluid. The patient was also complained that her contractions were becoming more intense, and was breathing through her contractions as well. The baby has had a category 1 tracing during almost all of her hospital stay. Physical Exam Const: COMMON NORMALS: patient oriented x3 and alert HENMT: COMMON NORMALS: moist oral mucous membranes HEAD & SCALP: normal to inspection Chest: COMMONS NORMALS: normal inspection of the chest Resp: COMMON NORMALS: clear to auscultation bilaterally AUSCULTATION: clear to auscultation bilaterally Cardio: COMMON NORMALS: regular rate and regular rhythm RATE: regular rate RHYTHM: regular rhythm GI: INSPECTION: Yes normal to inspection and Yes other (Gravid) Extremity: COMMON NORMALS: normal to inspection GENERAL: Yes edema (Trace) Neuro: COMMON NORMALS: patient oriented x3, moves all extremities and no sensory deficits noted SENSORIUM/ORIENTATION: Yes alert Psych: COMMON NORMALS: mental status grossly normal Skin: COMMON NORMALS: no rashes or lesions noted GENERAL SKIN EXAM: no rashes or lesions noted TS Data Recent Clincial Data Last Vital Signs Temp 97.0 F L 10/25/22 22:09 Pulse 115 H 10/26/22 00:17 Resp 16 10/25/22 20:45 BP 119/69 10/26/22 00:06 Pulse Ox 99 10/26/22 00:17 Vital Signs Temp Pulse Resp BP Pulse Ox 10/25/22 20:45 16 10/26/22 00:17 115 H 99 10/26/22 00:12 130 H 100 10/26/22 00:07 122 H 100 10/26/22 00:06 126 H 119/69 10/26/22 00:02 124 H 100 10/25/22 23:57 111 H 99 10/25/22 23:52 116 H 99 10/25/22 23:51 117 H 125/65 10/25/22 23:47 110 H 99 10/25/22 23:42 120 H 99 10/25/22 23:37 116 H 99 10/25/22 23:36 114 H 119/63 10/25/22 23:32 112 H 99 10/25/22 23:27 112 H 99 10/25/22 23:22 114 H 99 10/25/22 23:21 104 H 130/71 10/25/22 23:17 105 H 99 10/25/22 23:06 91 124/68 10/25/22 22:51 98 120/61 10/25/22 22:37 93 122/67 10/25/22 22:22 96 123/66 10/25/22 22:09 97.0 F L 10/25/22 21:51 78 120/72 10/25/22 21:37 68 119/71 10/25/22 21:21 81 115/63 10/25/22 20:45 16 10/25/22 21:06 77 116/62 10/25/22 20:52 76 115/63 10/25/22 20:34 92 123/73 Intake & Output/Weight 10/23/22 10/24/22 10/25/22 10/26/22 06:59 06:59 06:59 06:59 Weight 178 lb Vitals Last Vital Signs Temp 97.0 F L 10/25/22 22:09 Pulse 115 H 10/26/22 00:17 Resp 16 10/25/22 20:45 BP 119/69 10/26/22 00:06 Pulse Ox 99 10/26/22 00:17 TS Medications Medications Sodium Chloride (Sodium Chloride 0.9%) 1,000 mls @ 999 mls/hr IV .Q1H1M [facility] Last Admin: 10/25/22 22:55 Dose: 999 mls/hr Discontinued Medications Ceftriaxone Sodium 1,000 mg/ (Sodium Chloride) 50 mls @ 100 mls/hr IV ONCE ONE; Protocol Stop: 10/25/22 23:05 Last Admin: 10/25/22 22:55 Dose: 100 mls/hr Nifedipine (Nifedipine 10 Mg Capsule) 20 mg PO ONCE ONE Stop: 10/25/22 21:03 Last Admin: 10/25/22 21:07 Dose: 20 mg Nifedipine (Nifedipine 10 Mg Capsule) 10 mg PO ONCE ONE Stop: 10/25/22 21:41 Last Admin: 10/25/22 21:40 Dose: 10 mg Nifedipine (Nifedipine 10 Mg Capsule) 10 mg PO ONCE ONE Stop: 10/25/22 22:37 Last Admin: 10/25/22 22:47 Dose: 10 mg Terbutaline Sulfate (Terbutaline 1 Mg/Ml Inj) 0.25 mg SUBCUT ONCE ONE Stop: 10/25/22 23:07 Last Admin: 10/25/22 23:14 Dose: 0.25 mg Allergies shrimp Allergy (Severe, Verified 04/15/22 07:25) throat closes up aspirin Adverse Reaction (Mild, Verified 04/15/22 07:25) HIVES Home Medications montelukast 10 mg tablet (Singulair) 10 mg PO DAILY #30 tabs 10/04/21 [Rx Confirmed 10/25/22] vitamins with calcium no.72-iron 29 mg-folic acid 1 mg tablet 1 tab PO DAILY 04/15/22 [History Confirmed 10/25/22] sertraline 50 mg tablet 50 mg PO DAILY #30 tabs 04/15/22 [Rx Confirmed 10/25/22] Discharge Plan Discharge Patient Disposition: Xfer Other Prescriptions: Continued PNV,calcium 72-iron,carb-folic 29 mg iron- 1 mg tablet 1 tab PO DAILY sertraline 50 mg tablet 50 mg PO DAILY Qty: 30 11RF Discontinued montelukast [Singulair] 10 mg tablet 10 mg PO DAILY Qty: 30 0RF Discharge Orders: Transfer Out of Facility (Order); Ordered 10/26/22 Ordered By: Paul Paul Diet: Clear Liquid Activity: Bedrest Transfer Attestations Time Spent in Transfer Care: greater than 30 min Quality Metrics Clinical Quality Measures [ No reported AMI, CVA or VTE this stay] Coding Level of Care Code Acute Code for Chg Fwd Diagnoses
[2022-10-26] MEDS: sodium chloride 0.9% 1,000 ML 125 ML IV (00:46)
--- NOTE | 2022-10-26 01:25 | PC.NURSE ---
Pt's cell phone sent with pt on ambulance. Family member took remainder of pt's belongings.
== END 2022-10-26 01:12 | disposition other institution (70) ==
LOC: OPOB 20:29 → OBGYN 20:31
PROVIDERS: PCP Clinical Nurse Specialist Adult Health; Visit Provider Family Medicine
DX: O26.899 Other specified pregnancy related conditions, unspecified trimester (principal); Z3A.00 Weeks of gestation of pregnancy not specified; R10.9 Unspecified abdominal pain
CPT/HCPCS: 59025; 96372; 99211; J0696; J3105; J7030